=== PATIENT | male | born 1990 | race Two or more races ===

== ENCOUNTER 2020-11-28 13:43 | Emergency (ER) | payer SELFPAY ==
[~2020-11-28] VITALS: Ht 180.3 cm; Wt 78.9 kg
--- NOTE | 2020-11-28 13:59 | NUR ---
To ER bed 12, Left thumb lac while cutting a tile, tdap 4 months ago, 7/10 ps, aaox4, breathing even and non labored
[2020-11-28] MEDS ORDERED: LIDOCAINE 1% INJ 50 ML MDV IJ ONE (14:24)
[2020-11-28] MEDS ORDERED: TDAP [DIPH/PERTUSSIS/TET] 0.5 ML VIAL IM ONE (14:30)
[2020-11-28] MEDS ORDERED: LIDOCAINE HCL/PF 1% 30 ML VIAL TP ONE (14:30)
[2020-11-28] MEDS ORDERED: BACI/NEOM/POLY B OINT PKT 1 UDPKT PACKET TP ONE (14:30)
--- NOTE | 2020-11-28 16:33 | NUR ---
Patient discharged to home in stable condition. Written and verbal after care instructions given. Patient verbalizes understanding of instruction.
[2020-11-28 16:39] VITALS: BP 127/79
== END 2020-11-28 16:40 | disposition home or self-care (01) ==
LOC: ER 13:47
DX: S61.012A Laceration without foreign body of left thumb without damage to nail, initial encounter (principal); W26.8XXA Contact with other sharp object(s), not elsewhere classified, initial encounter; Y93.89 Activity, other specified; Y92.89 Other specified places as the place of occurrence of the external cause; Y99.8 Other external cause status
CPT/HCPCS: 12002; 73130; 99283; A6403; J3490